=== PATIENT | male | born 1990 | race Caucasian/White ===

== ENCOUNTER 2016-05-31 17:49 | Emergency (ER) | payer OTHER ==
[~2016-05-31] VITALS: Wt 120.2 kg
[~2016-05-31 17:49] MED LIST: AMOXICILLIN500 MG PO; BACTRIM DS 8001 TA1 PO; CATAFLAM50 MG PO; FLEXERIL5 MG PO; FLONASE 0.05% 121 EA NAS; HYDROCODONE BIT1 T11 PO; IBU-8800 MG PO; KEFLEX500 MG PO; LOMOTIL 0.025 M1 TAB PO; MEDROL DOSEPAK4 MG PO; MOTRIN800 MG PO; NAPROSYN375 MG PO; NKHM; PHENERGAN W/DM120 ML PO; PREDNICOT10 MG PO; VICODIN ES 7501 TAB PO; ZOFRAN ODT4 MG SL; ZOFRAN ODT8 MG PO; ZYRTEC10 M1 PO; ZYRTEC10 MG PO
[2016-05-31 18:38] LABS: BILIRUBIN NEGATIVE (NEGATIVE); BLOOD NEGATIVE (NEGATIVE); CLARITY SL CLOUDY (CLEAR); COLOR YELLOW (YELLOW); GLUCOSE NEGATIVE (NEGATIVE); KETONE NEGATIVE (NEGATIVE); LEUKO ESTERASE NEGATIVE (NEGATIVE); NITRITE NEGATIVE (NEGATIVE); PH 6.5 (5.0-9.0); PROTEIN NEGATIVE (NEGATIVE); UROBILINOGEN 0.2 E.U./dl (0.2-1.0)
[2016-05-31 18:46] LABS: EPITHELIAL CELLS 0-2; MUCOUS TRACE; RBC 0-2 rbc/hpf (0-2); URINE REFLEX COMMENT YES (NO)
[2016-05-31] MEDS ORDERED: ZOFRAN ODT4 MG SL (18:48)
== END 2016-05-31 19:47 | disposition home or self-care (01) ==
LOC: ED 17:49
PROVIDERS: Registered Nurse
DX: K52.9 Noninfective gastroenteritis and colitis, unspecified (principal)

== ENCOUNTER 2017-02-17 07:37 | Emergency (ER) | payer SELFPAY ==
[~2017-02-17] VITALS: Ht 193 cm; Wt 117.9 kg
[2017-02-17] MEDS ORDERED: CYCLOBENZAPRINE10 MG PO (08:00)
[2017-02-17] MEDS ORDERED: AMOXICILLIN875 MG PO (08:00)
[2017-02-17] MEDS ORDERED: EC NAPROSYN500 MG PO (08:00)
== END 2017-02-17 08:02 | disposition home or self-care (01) ==
LOC: ED 07:37
DX: S39.012A Strain of muscle, fascia and tendon of lower back, initial encounter (principal); J02.9 Acute pharyngitis, unspecified; F10.10 Alcohol abuse, uncomplicated; Z79.899 Other long term (current) drug therapy; X50.0XXA Overexertion from strenuous movement or load, initial encounter; Y93.89 Activity, other specified; Y92.89 Other specified places as the place of occurrence of the external cause; Y99.8 Other external cause status

== ENCOUNTER 2017-05-02 18:38 | Emergency (ER) | payer SELFPAY ==
[~2017-05-02] VITALS: Ht 190.5 cm; Wt 117.9 kg
[~2017-05-02 18:38] MED LIST changes: +AMOXICILLIN875 MG PO; +CYCLOBENZAPRINE10 MG PO; +EC NAPROSYN500 MG PO
[2017-05-02] MEDS ORDERED: CYCLOBENZAPRINE10 MG PO (19:02)
[2017-05-02] MEDS ORDERED: PREDNISONE10 MG PO (19:02)
== END 2017-05-02 19:39 | disposition home or self-care (01) ==
LOC: ED 18:38
DX: M54.32 Sciatica, left side (principal); F10.10 Alcohol abuse, uncomplicated; Z79.899 Other long term (current) drug therapy

== ENCOUNTER 2017-05-31 17:31 | Emergency (ER) | payer OTHER ==
[~2017-05-31] VITALS: Ht 190.5 cm; Wt 120.2 kg
[~2017-05-31 17:31] MED LIST changes: +PREDNISONE10 MG PO
[2017-05-31 18:02] LABS: BASO % 0.3 % (0.0-1.0); EOS # 0.1 10*3/uL (0.0-0.4); EOS % 1.9 % (1.0-4.0); HEMATOCRIT 41.4 % (42.0-52.0); HEMOGLOBIN 14.2 g/dl (14.0-18.0); LYMPH # 1.8 10*3/uL (1.3-4.4); MEAN CELL VOLUME 89.8 fl (80.0-94.0); MEAN CORPUSCULAR HGB 30.8 pg (27.0-31.0); MEAN CORPUSCULAR HGB CONC 34.3 g/dl (33.0-37.0); MEAN PLATELET VOLUME 10.6 fl (9.6-12.3); MONO # 0.6 10*3/uL (0.1-1.0); MONO % 8.3 % (3.0-9.0); NEUT # 4.7 10*3/uL (2.3-7.9); NEUT % 64.2 % (47.0-73.0); PLATELET COUNT AUTOMATED 270 10*3/uL (130-400); RED BLOOD COUNT 4.61 10*6/uL (4.50-5.90); RED CELL DISTRI WIDTH 12.4 % (0-14.5); WHITE BLOOD COUNT 7.2 10*3/uL (4.8-10.8)
[2017-05-31 18:03] LABS: BILIRUBIN 1+ (NEGATIVE); BLOOD TRACE-INTACT (NEGATIVE); CLARITY CLEAR (CLEAR); COLOR YELLOW (YELLOW); GLUCOSE NEGATIVE (NEGATIVE); KETONE TRACE (NEGATIVE); LEUKO ESTERASE NEGATIVE (NEGATIVE); NITRITE NEGATIVE (NEGATIVE); PH 5.5 (5.0-9.0); SPECIFIC GRAVITY >= 1.030 (1.005-1.030)
[2017-05-31] MEDS ORDERED: ZOFRAN ODT4 MG SL (18:09)
[2017-05-31 18:16] LABS: MUCOUS 1+; WBC 0-2 wbc/hpf (0-5)
[2017-05-31 18:16] LABS: ALBUMIN 4.2 gm/dl (3.1-4.5); ALKALINE PHOSPHATASE 100 U/L (45-117); BUN 15 mg/dl (7-24); CHLORIDE 105 mmol/L (98-107); CREATININE 1.12 mg/dL (0.70-1.30); POTASSIUM 3.7 mmol/L (3.5-5.1); SGOT/AST 24 IU/L (3-35); SGPT/ALT 41 U/L (12-78); SODIUM 141 mmol/L (136-145); TOTAL PROTEIN 7.9 gm/dL (6.4-8.2)
== END 2017-05-31 18:22 | disposition home or self-care (01) ==
LOC: ED 17:31
PROVIDERS: Emergency Medicine
DX: A08.4 Viral intestinal infection, unspecified (principal); E86.0 Dehydration

== ENCOUNTER 2017-07-13 18:27 | Emergency (ER) | payer OTHER ==
[~2017-07-13] VITALS: Wt 117.9 kg
[2017-07-13 19:02] LABS: BASO % 0.4 % (0.0-1.0); EOS # 0.1 10*3/uL (0.0-0.4); EOS % 0.8 % (1.0-4.0); HEMATOCRIT 47.9 % (42.0-52.0); HEMOGLOBIN 16.3 g/dl (14.0-18.0); LYMPH # 1.2 10*3/uL (1.3-4.4); LYMPH % 14.5 % (27.0-41.0); MEAN CELL VOLUME 90.2 fl (80.0-94.0); MEAN CORPUSCULAR HGB 30.7 pg (27.0-31.0); MEAN PLATELET VOLUME 10.7 fl (9.6-12.3); MONO # 0.4 10*3/uL (0.1-1.0); MONO % 5.2 % (3.0-9.0); NEUT # 6.7 10*3/uL (2.3-7.9); NEUT % 78.9 % (47.0-73.0); PLATELET COUNT AUTOMATED 292 10*3/uL (130-400); RED BLOOD COUNT 5.31 10*6/uL (4.50-5.90); RED CELL DISTRI WIDTH 11.6 % (0-14.5); WHITE BLOOD COUNT 8.5 10*3/uL (4.8-10.8)
[2017-07-13 19:19] LABS: ALBUMIN 4.4 gm/dl (3.1-4.5); ALKALINE PHOSPHATASE 114 U/L (45-117); BUN 14 mg/dl (7-24); CHLORIDE 99 mmol/L (98-107); CREATININE 1.14 mg/dL (0.70-1.30); LIPASE 117 U/L (73-393); POTASSIUM 3.5 mmol/L (3.5-5.1); SGOT/AST 17 IU/L (3-35); SGPT/ALT 33 U/L (12-78); SODIUM 136 mmol/L (136-145); TOTAL PROTEIN 8.6 gm/dL (6.4-8.2)
[2017-07-13] MEDS ORDERED: ZOFRAN4 MG PO (19:23)
== END 2017-07-13 20:17 | disposition home or self-care (01) ==
LOC: ED 18:27
PROVIDERS: Nurse Practitioner Family
DX: A08.4 Viral intestinal infection, unspecified (principal)

== ENCOUNTER 2017-09-20 18:29 | Emergency (ER) | payer OTHER ==
[~2017-09-20] VITALS: Ht 193 cm; Wt 115.7 kg
[~2017-09-20 18:29] MED LIST changes: +ZOFRAN4 MG PO
== END 2017-09-20 19:26 | disposition home or self-care (01) ==
LOC: ED 18:29
DX: A08.4 Viral intestinal infection, unspecified (principal)

== ENCOUNTER 2018-06-03 07:24 | Emergency (ER) | payer BC ==
[~2018-06-03] VITALS: Ht 190.5 cm; Wt 117.9 kg
[~2018-06-03 07:24] MED LIST changes: +BLEPH-10 5 ML5 ML OP
[2018-06-03] MEDS ORDERED: DOXYCYCLINE100 M3 PO (09:01)
== END 2018-06-03 09:03 | disposition home or self-care (01) ==
LOC: ED 07:24
DX: H10.9 Unspecified conjunctivitis (principal)

== ENCOUNTER → 2020-02-06 | Outpatient (CLI) | payer BC ==
[~2020-02-06] MED LIST changes: +DOXYCYCLINE100 M3 PO
== END | disposition home or self-care (01) ==
LOC: COVID19 11:41
PROVIDERS: ATTEND Internal Medicine
DX: U07.1 COVID-19 (principal)

== ENCOUNTER 2021-08-08 16:32 | Emergency (ER) | payer BC ==
[~2021-08-08] VITALS: Ht 193 cm; Wt 127.0 kg
[2021-08-08] MEDS ORDERED: LOSARTAN POTAS100 M1 PO (16:54)
[2021-08-08] MEDS ORDERED: SERTRALINE HYDR25 MG PO (16:55)
[2021-08-08 19:18] LABS: BASO % 0.3 % (0.0-1.0); EOS # 0.1 10*3/uL (0.0-0.4); EOS % 2.6 % (1.0-4.0); LYMPH # 0.9 10*3/uL (1.3-4.4); LYMPH % 23.1 % (27.0-41.0); MEAN CELL VOLUME 89.9 fl (80.0-94.0); MEAN CORPUSCULAR HGB 30.5 pg (27.0-31.0); MEAN CORPUSCULAR HGB CONC 33.9 g/dl (33.0-37.0); MEAN PLATELET VOLUME 10.9 fl (9.6-12.3); MONO # 0.6 10*3/uL (0.1-1.0); MONO % 14.8 % (3.0-9.0); NEUT # 2.3 10*3/uL (2.3-7.9); NEUT % 58.9 % (47.0-73.0); PLATELET COUNT AUTOMATED 208 10*3/uL (130-400); RED BLOOD COUNT 4.56 10*6/uL (4.50-5.90); WHITE BLOOD COUNT 3.9 10*3/uL (4.8-10.8)
[2021-08-08 19:35] LABS: ACT PARTIAL THROMBO TIME 26.4 SECONDS (20.0-32.1)
[2021-08-08 19:38] LABS: ALKALINE PHOSPHATASE 113 U/L (45-117); BUN 12 mg/dl (7-24); CHLORIDE 110 mmol/L (98-107); CREATININE 0.93 mg/dL (0.70-1.30); LIPASE 126 U/L (73-393); POTASSIUM 3.8 mmol/L (3.5-5.1); SGOT/AST 29 IU/L (3-35); SGPT/ALT 62 U/L (12-78); SODIUM 140 mmol/L (136-145); TOTAL PROTEIN 7.5 gm/dL (6.4-8.2)
== END 2021-08-09 00:05 | disposition home or self-care (01) ==
LOC: ED 16:32
PROVIDERS: Emergency Medicine
DX: F41.9 Anxiety disorder, unspecified (principal); R55 Syncope and collapse; R42 Dizziness and giddiness

== ENCOUNTER → 2021-08-20 | Outpatient (CLI) | payer BC ==
[~2021-08-20] MED LIST changes: +LOSARTAN POTAS100 M1 PO; +SERTRALINE HYDR25 MG PO
== END | disposition home or self-care (01) ==
LOC: CARD 03:28
PROVIDERS: ATTEND Family Medicine
DX: R00.1 Bradycardia, unspecified (principal); R07.89 Other chest pain; R55 Syncope and collapse

== ENCOUNTER 2024-02-19 06:02 | Emergency (ER) | payer BC ==
[~2024-02-19] VITALS: Ht 193 cm; Wt 149.7 kg
[2024-02-19 06:37] LABS: BASO % 0.5 % (0.0-1.0); EOS # 0.2 10*3/uL (0.0-0.4); EOS % 3.2 % (1.0-4.0); HEMATOCRIT 42.8 % (42.0-52.0); MEAN CELL VOLUME 91.6 fl (80.0-94.0); MEAN CORPUSCULAR HGB 31.3 pg (27.0-31.0); MEAN CORPUSCULAR HGB CONC 34.1 g/dl (33.0-37.0); MEAN PLATELET VOLUME 10.4 fl (9.6-12.3); MONO # 0.6 10*3/uL (0.1-1.0); MONO % 9.8 % (3.0-9.0); NEUT # 3.6 10*3/uL (2.3-7.9); NEUT % 55.4 % (47.0-73.0); PLATELET COUNT AUTOMATED 238 10*3/uL (130-400); RED BLOOD COUNT 4.67 10*6/uL (4.50-5.90); RED CELL DISTRI WIDTH 11.9 % (0-14.5); WHITE BLOOD COUNT 6.5 10*3/uL (4.8-10.8)
[2024-02-19 06:57] LABS: ALKALINE PHOSPHATASE 119 U/L (46-116); BUN 15 mg/dl (9-23); CHLORIDE 101 mmol/L (98-107); LIPASE 41 U/L (12-53); POTASSIUM 3.8 mmol/L (3.4-5.1); SGPT/ALT 85 U/L (5-49); TOTAL PROTEIN 8.1 gm/dL (6.0-8.0)
[2024-02-19] MEDS ORDERED: IOHEXOL 300 MG/ML 100 ML VIAL IV ONE (07:35)
[2024-02-19] MEDS ORDERED: FLOMAX0.4 MG PO (09:22)
[2024-02-19] MEDS ORDERED: Ondansetron4 MG PO (09:22)
[2024-02-19] MEDS ORDERED: PERCOCET 5-3251 EACH PO (09:22)
== END 2024-02-19 09:26 | disposition home or self-care (01) ==
LOC: ED 06:02
PROVIDERS: Internal Medicine
DX: N13.2 Hydronephrosis with renal and ureteral calculous obstruction (principal); R11.0 Nausea; G43.909 Migraine, unspecified, not intractable, without status migrainosus